=== PATIENT | male | born 1930 | race Caucasian/White ===

== ENCOUNTER 2016-12-22 14:13 | Emergency (ER) | payer MEDICARE ==
[~2016-12-22] VITALS: Ht 182.9 cm; Wt 85.1 kg
[~2016-12-22 14:13] MED LIST: ALLO300T PO; AMLO10TA2 PO; DONE10TA14 PO; LOSA100T6 PO; METF10002 PO; SAXA5TAB PO; SIMV40TA3 PO
[2016-12-22] MEDS ORDERED: SODIUM CHLORIDE FLUSH 10ML SYR IVF ONE (15:30)
[2016-12-22 16:10] LABS: ASPARTATE AMINO TRANSFERASE 20 U/L (15-37); BLOOD UREA NITROGEN 22 mg/dL (7-18)
[2016-12-22 16:15] LABS: IS PT STATUS REG ER OR PRE ER? YES
[2016-12-22 17:50] VITALS: BP 125/51
== END 2016-12-22 17:53 | disposition home or self-care (01) ==
LOC: ED 14:52
DX: N20.0 Calculus of kidney (principal); N23 Unspecified renal colic; E11.9 Type 2 diabetes mellitus without complications; M10.9 Gout, unspecified; I10 Essential (primary) hypertension; Z87.442 Personal history of urinary calculi; Z87.891 Personal history of nicotine dependence
CPT/HCPCS: 36415; 71010; 74176; 80053; 81003; 83690; 84484; 85025; 85610; 85730; 93005

== ENCOUNTER → 2017-01-25 | Outpatient (CLI) | payer MEDICARE | END | disposition home or self-care (01) | LOC: CFH 10:21 | PROVIDERS: ATTEND Nurse Practitioner Family | DX: S60.450A Superficial foreign body of right index finger, initial encounter (principal); M19.041 Primary osteoarthritis, right hand; X58.XXXA Exposure to other specified factors, initial encounter; Y93.89 Activity, other specified; Y92.89 Other specified places as the place of occurrence of the external cause; Y99.8 Other external cause status ==

== ENCOUNTER 2019-08-28 13:15 | Outpatient (CLI) | payer MEDICARE ==
[~2019-08-28 13:15] MED LIST changes: -AMLO10TA2 PO; +AMLO10TA8 PO; +LOSA100T14 PO; -LOSA100T6 PO
== END 2019-08-28 23:59 | disposition home or self-care (01) ==
LOC: RAD 13:15
PROVIDERS: ATTEND Nurse Practitioner Family
DX: I08.3 Combined rheumatic disorders of mitral, aortic and tricuspid valves (principal); I65.23 Occlusion and stenosis of bilateral carotid arteries; I63.81 Other cerebral infarction due to occlusion or stenosis of small artery; G31.1 Senile degeneration of brain, not elsewhere classified; R41.0 Disorientation, unspecified; E11.39 Type 2 diabetes mellitus with other diabetic ophthalmic complication; E78.5 Hyperlipidemia, unspecified; H21 Other disorders of iris and ciliary body; H34.231 Retinal artery branch occlusion, right eye; I10 Essential (primary) hypertension; R22.0 Localized swelling, mass and lump, head
CPT/HCPCS: 70551; 93306; 93880